=== PATIENT | female | born 2000 | race Two or more races ===

== ENCOUNTER 2021-01-07 15:53 | Outpatient (CLI) | payer OTHER | END 2021-01-07 16:45 | disposition home or self-care (01) | LOC: PRENATAL 15:53 | PROVIDERS: ATTEND Obstetrics & Gynecology Maternal & Fetal Medicine | DX: O35.0XX1 Maternal care for (suspected) central nervous system malformation in fetus, fetus 1 (principal); O35.3XX1 Maternal care for (suspected) damage to fetus from viral disease in mother, fetus 1; O98.512 Other viral diseases complicating pregnancy, second trimester; O28.1 Abnormal biochemical finding on antenatal screening of mother; Z36.89 Encounter for other specified antenatal screening; Z3A.21 21 weeks gestation of pregnancy ==

== ENCOUNTER 2021-05-04 17:37 | Inpatient (IN) | payer OTHER ==
[~2021-05-04] VITALS: Ht 175.3 cm; Wt 90.7 kg
[2021-05-19] MEDS ORDERED: PRENATAL TABLE1 EAC3 PO (06:47)
[2021-05-19] MEDS ORDERED: FOLIC ACID20 MG PO (06:48)
== END 2021-05-21 19:18 | disposition home or self-care (01) | DRG 807 ==
LOC: LDR 05-19 06:07 → OB/GYN 05-19 15:00 → LDR 05-19 15:14 → OB/GYN 05-19 19:13
PROVIDERS: ADMIT Obstetrics & Gynecology; ATTEND Obstetrics & Gynecology
PROC: 10E0XZZ Delivery of Products of Conception, External Approach (ICD-10-PCS; principal; 2021-05-19)
PROC: 4A1HXCZ Monitoring of Products of Conception, Cardiac Rate, External Approach (ICD-10-PCS; 2021-05-19)
DX: O80 Encounter for full-term uncomplicated delivery (principal); Z37.0 Single live birth; Z3A.40 40 weeks gestation of pregnancy; Z20.822 Contact with and (suspected) exposure to COVID-19

== ENCOUNTER 2024-08-07 00:17 | Inpatient (IN) | payer OTHER ==
[~2024-08-07] VITALS: Ht 175.3 cm; Wt 70.3 kg
[~2024-08-07 00:17] MED LIST: FOLIC ACID20 MG PO; PRENATAL TABLE1 EAC3 PO
[2024-08-07] MEDS ORDERED: 0.9 % SODIUM CHLORIDE 1,000 ML IV STA (00:46)
[2024-08-07 02:02] LABS: BASO % 0.4 % (0.1-1.2); EOS # 0.19 (0.04-0.54); EOS % 2.6 % (0.7-7.0); HEMATOCRIT 32.3 % (34.1-44.9); HEMOGLOBIN 10.8 g/dL (11.2-15.7); LYMPH # 1.74 (1.18-3.74); LYMPH % 24.1 % (19.3-53.1); MEAN CORPUSCULAR HEMOGLOBIN 27.3 pg (25.6-32.2); MONO # 0.59 (0.24-0.82); MONO % 8.2 % (4.7-12.5); NEUT # 4.64 (1.56-6.13); NEUT % 64.3 % (34.0-71.1); PLATELET COUNT 141 K/uL (163-369); RED BLOOD COUNT 3.96 M/uL (3.93-5.22)
[2024-08-07 02:23] LABS: INR 1.03; PARTIAL THROMBOPLASTIN TIME 22.9 SECONDS (22.0-34.0); PROTHROMBIN TIME 11.2 SECONDS (9.0-11.5)
[2024-08-07 02:43] LABS: ALBUMIN 3.4 gm/dL (3.4-5.0); BILIRUBIN TOTAL 0.42 mg/dL (0.3-1.2); CALCIUM 8.5 mg/dL (8.5-10.1); CREATININE SERUM 0.69 mg/dL (0.55-1.02); GFR 104.52; GLOBULINA 2.6 G/DL (2.4-3.5); POTASSIUM 3.68 mEq/L (3.5-5.1)
[2024-08-07 09:00] LABS: BASO % 0.3 % (0.1-1.2); EOS # 0.05 (0.04-0.54); EOS % 0.5 % (0.7-7.0); HEMATOCRIT 28.1 % (34.1-44.9); HEMOGLOBIN 9.2 g/dL (11.2-15.7); LYMPH # 1.06 (1.18-3.74); MEAN CORPUSCULAR HEMOGLOBIN 26.6 pg (25.6-32.2); MONO # 0.45 (0.24-0.82); MONO % 4.7 % (4.7-12.5); NEUT # 8.03 (1.56-6.13); PLATELET COUNT 155 K/uL (163-369); RED BLOOD COUNT 3.46 M/uL (3.93-5.22); RED CELL DISTRIBUTION WIDTH 14.1 % (11.6-14.4)
[2024-08-07] MEDS ORDERED: POVIDONE-IODINE 118 ML BOTT TOP ONE (09:28)
[2024-08-07] MEDS ORDERED: CHLORHEXIDINE GLUCONATE 120 ML BOTTLE TOP ONE (09:28)
[2024-08-07] MEDS ORDERED: OXYTOCIN 10 UNITS/ML VIAL ONE (09:54)
[2024-08-07 10:07] LABS: COVID-19 AG NEGATIVE (NEGATIVE)
[2024-08-07] MEDS ORDERED: OxyCODONE HCL 5 MG TABLET (ROXICODONE) PO PRN (10:15)
[2024-08-07] MEDS ORDERED: ACETAMINOPHEN 325 MG TABLET PO PRN (10:15)
[2024-08-07 20:26] VITALS: BP 106/65
[2024-08-07 23:31] VITALS: O2SAT 100
[2024-08-08] VITALS: BP 87/47
[2024-08-08 02:54] LABS: BASO % 0.4 % (0.1-1.2); EOS # 0.11 (0.04-0.54); EOS % 1.4 % (0.7-7.0); LYMPH # 1.71 (1.18-3.74); MEAN CORPUSCULAR HEMOGLOBIN 27.3 pg (25.6-32.2); MONO # 0.65 (0.24-0.82); MONO % 8.4 % (4.7-12.5); NEUT # 5.22 (1.56-6.13); NEUT % 67.3 % (34.0-71.1); RED BLOOD COUNT 3.04 M/uL (3.93-5.22); RED CELL DISTRIBUTION WIDTH 14.7 % (11.6-14.4)
[2024-08-08 02:59] LABS: HEMATOCRIT 24.3 % (34.1-44.9); HEMOGLOBIN 8.3 g/dL (11.2-15.7); PLATELET COUNT 114 K/uL (163-369)
[2024-08-08 08:18] VITALS: BP 95/55
[2024-08-08] MEDS ORDERED: FF) RHO(D) IMMUNE GLOBULIN (POM) IM ONE (09:30)
[2024-08-08] MEDS ORDERED: SIMETHICONE 125 MG CAPSULE PO SCH (18:00)
== END 2024-08-08 10:51 | disposition home or self-care (01) | DRG 779 ==
LOC: ER 00:17 → OB/GYN 08:56 → O/R 08:56 → OB/GYN 13:45
PROVIDERS: ADMIT Obstetrics & Gynecology; ATTEND Obstetrics & Gynecology
PROC: BU4CZZZ Ultrasonography of Uterus and Ovaries (ICD-10-PCS; 2024-08-07)
PROC: 30233N1 Transfusion of Nonautologous Red Blood Cells into Peripheral Vein, Percutaneous Approach (ICD-10-PCS; 2024-08-07)
PROC: 10D17Z9 Manual Extraction of Products of Conception, Retained, Via Natural or Artificial Opening (ICD-10-PCS; principal; 2024-08-07 09:45)
DX: O03.4 Incomplete spontaneous abortion without complication (principal); D51.0 Vitamin B12 deficiency anemia due to intrinsic factor deficiency; N93.9 Abnormal uterine and vaginal bleeding, unspecified